=== PATIENT | male | born 1970 | race Caucasian/White ===

== ENCOUNTER 2017-06-11 12:57 | Observation (INO) | payer OTHER ==
[~2017-06-11] VITALS: Ht 170.2 cm; Wt 64.1 kg
[2017-06-11] VITALS (13 sets, daily range): BP systolic 117–153; BP diastolic 70–96; PULSE 82–118; RESP 12–18; O2SAT 94–100
[~2017-06-11 12:57] MED LIST: CEPH-512 PO; NOMED; SULF1TAB7 PO
--- NOTE | 2017-06-11 13:11 | ED.REPORT ---
HPI-General Illness Date of Service Jun 11, 2017 ED Provider: Aleksey Wheat MD Pt is a 46 y/o male w/ a history of psychosis presenting to the ED for evaluation after having a penis ring stuck onto his penis and is unable to remove it since earlier today. The patient says he was sleeping and a woman placed a metal ring over his penis at about 01:00 which is now causing significant pain and swelling of the penis. Pain is severe, throbbing, located diffusely around the shaft of his penis and not really radiating. He said he tried to remove it but was unable to do so. He denies any drug or alcohol use. He initially says that this hasn't happened before but after chart review he has been seen for this previously. He then admits that it has happened before in a similar manner. He says his mental health diagnosis is "psychosis" although he is not on any medications. He denies having any other complaints at this time, including no chest pain, shortness of breath, fever, chills, abdominal pain, drainage from the penis, or anything else of note. He denies any suicidal or homicidal ideations, nor hallucinations. Nursing Notes Stated Complaint: RING REMOVAL Chief Complaint: General Complaint Nursing Notes Reviewed: Yes Allergies: Coded Allergies: No Known Allergies (Verified , 08/25/16) Scheduled Cephalexin (Keflex) 500 Mg Capsule 500 MG PO QID Sulfamethoxazole/Trimeth 800-160 mg (Bactrim DS) 1 Each Tablet 1 TABLET PO BID Sulfamethoxazole/Trimeth 800-160 mg (Bactrim DS) 1 Each Tablet 1 TABLET PO BID Miscellaneous Medications No Historical Medication (No Historical Medication) Ea General Time Seen by MD: 13:07 Chief Complaint Other (penis pain) Hx Obtained From: Patient Arrived By: Walk-in Sudden in Onset?: Yes Onset Occurred: 9 - 12 hours ago Symptom Duration: Since onset Quality: Painful, Throbbing Radiation: : Does not radiate Severity: Current: Severe Severity: Maximum: Severe Recent Healthcare: Previous diagnosis Similar Sx Previous: Yes Past Medical History Past Medical History Undiagnosed untreated psychosis Past Surgical History Reports: Inguinal hernia repair Smoking History Unknown if Ever Smoker Social History Alcohol Use: Denies alcohol use Drug Use: Denies drug use Ambulatory Status Independent Review of Systems +penile pain and swelling Full Review of Systems Constitutional: Denies: Fever Eyes: Denies: Blurred bilateral Ears / Nose / Throat: Denies: Sore throat Respiratory: Denies: Shortness of breath Cardiovascular: Denies: Chest pain GI: Denies: Abdominal pain, Vomiting Male: Denies Penile discharge, Denies Testicular pain, Denies Testicular swelling Musculoskeletal: Denies: Back pain Skin: Denies Itching Allergy / Immune: Denies: Itching Neurologic: Denies: Headache Psychiatric: Denies: Change mental status Complete sys rev & neg: except as marked. Physical Exam Nursing note and vitals reviewed. Constitutional: Somewhat disheveled middle-aged male sitting up in bed. Not diaphoretic. Uncomfortable. Head: Normocephalic and atraumatic. Mouth/Throat: Oropharynx is clear and moist. No oropharyngeal exudate. Poor dentition. Eyes: EOM are normal. Pupils are equal, round, and reactive to light. Neck: Supple, no tracheal deviation. Cardiovascular: Tachycardic, regular rhythm. Equal and intact distal pulses throughout. Pulmonary/Chest: Effort normal and breath sounds normal. No respiratory distress. Abdominal: Soft. No distension. There is no tenderness, rebound, or guarding. : Engorged penis with a small abrasion to the shaft of the penis. Approx 2 cm diameter ring at the base of the penis appears to be constricting blood flow. Appears reddish blue. Musculoskeletal: Range of motion grossly intact, moving all extremities. No edema appreciated. Neurological: AOx3. Grossly nonfocal exam. Skin: Warm and dry, no rashes or pallor appreciated. Psychiatric: Appropriate mood and affect. Behavior appears normal. Vital Signs Vital Signs Date Time Temp Pulse Resp B/P Pulse Ox O2 Delivery O2 Flow Rate FiO2 06/11/17 18:27 37 94 17 119/76 100 Room Air 06/11/17 18:20 37 94 17 119/76 100 Room Air 06/11/17 16:36 36.7 105 17 129/70 97 Room Air 06/11/17 15:07 36.7 98 16 134/78 98 Room Air 06/11/17 13:03 36.9 118 18 153/91 99 Initial VS: Reviewed Interpretation & Diagnostics Lab Results Interpretation Result Diagram: 06/11/17 1500 06/11/17 1500 Test 06/11/17 15:00 White Blood Count 11.4th/mm3 (3.8-10.1) Red Blood Count 4.69mil/mm3 (4.40-5.80) Hemoglobin 14.3g/dL (13.8-17.2) Hematocrit 42.1% (41.0-50.0) Mean Corpuscular Volume 89.8fL (81-100) Mean Corpuscular Hemoglobin 30.5pg (27.0-35.0) Mean Corpuscular Hemoglobin Concent 34.0% (32.0-37.0) Red Cell Distribution Width 13.5% (12.3-15.4) Platelet Count 280bil/L (150-400) Neutrophils (%) (Auto) 70.0% (40-74) Lymphocytes (%) (Auto) 18.2% (14-46) Monocytes (%) (Auto) 9.4% (4-12) Eosinophils (%) (Auto) 1.8% (0-5) Basophils (%) (Auto) 0.3% (0-3) Prothrombin Time 10.3sec (8.1-12.5) Prothromb Time International Ratio 0.96ratio Sodium Level 140mEq/L (134-144) Potassium Level 4.3mEq/L (3.5-5.2) Chloride Level 101mEq/L (97-108) Carbon Dioxide Level 22mmol/L (18-29) Blood Urea Nitrogen 23mg/dL (6-24) Creatinine 0.75mg/dL (0.76-1.27) Estimat Glomerular Filtration Rate 119mL/min (>59) Glucose Level 96mg/dL (60-99) Calcium Level 9.6mg/dL (8.5-10.1) Total Bilirubin 2.0mg/dL (0.0-1.2) Aspartate Amino Transf (AST/SGOT) 38U/L (0-50) Alanine Aminotransferase (ALT/SGPT) 17U/L (0-44) Alkaline Phosphatase 52U/L (25-150) Total Protein 8.1g/dL (6.4-8.4) Albumin 4.9g/dL (3.4-5.0) Hold Mariscal Top Tube Received (Received) Procedures Procedure Notes: 13:20 - Attempted to cut the ring away with a ring-cutter with no success. The metal seems to be too hard. Subsequently tried again approximately 20 minutes later, again w/o success. 15:00 - Attempted again to cut the ring with larger cutters with no success. Re-Eval/Medical Decision Med Decision/Clinical Course In summary, 46-year-old male presenting to the ED for evaluation after having a previous ring entrapped around the base of the shaft of his penis approximately 12 hours prior to arrival. Obvious concern for ischemic injury given his physical examination and reported history. He was evaluated immediately upon his arrival given the severity of the situation. I attempted multiple times to remove the ring with both ring cutters and stronger bolt cutters without success. I contacted urology immediately upon patient's arrival as per below; appreciate Dr. Galindo's involvement. The recommendation was to continue attempting removal with similar instruments, which proved futile. Of note, at one point the patient managed to get his hands on some ring cutters and tried to remove it himself; he was also unsuccessful, however did manage to cut the shaft of his penis in several places. I instructed the patient that he should not attempt this on his own and that he could cause further damage. The ring diameter compared to the diameter of the engorged penis was an issue and we were unable to slip anything else underneath the ring, including elastic or related material in an attempt to remove it. I asked Dr. Galindo about aspiration or any other ideas he may have with respect to removal. Upon Dr. Galindo's arrival to the ED, he too attempted to remove the ring but without success. At that time , nursing staff were told that he would take the patient to the OR as soon as he was able to do so. Preoperative labs ordered. Grossly unremarkable with the exception of a bilirubin of 2.0; unclear significance of this at this time, however this will need to be addressed moving forward. Dr. Galindo subsequently called me from the operating room stating that he thought the patient may need a psychiatry evaluation. The patient is not currently endorsing any homicidal or suicidal ideations, nor endorsing any hallucinations, however his pattern of doing this on repeated occasions is concerning. He does not appear to be actively psychotic at this time. Given the complexity of the patient's situation and the severity of his condition, it was felt that he would require admission to the hospital. I contacted the hospitalist, who will admit the patient for further management and evaluation of his penile incarceration. Source of Hx: Old records Time of Eval: 13:33 Re-Evaluation/Progress Note: Declining any pain medication or local anesthetic at this time. Time of Eval: 13:41 Re-Evaluation/Progress Note: The patient was rechecked by the nurse and found to be trying to cut the ring off himself. He cut into his penis in the process. He did not have any success. Time of Eval: 14:01 Re-Evaluation/Progress Note: Urology OR staff here to assess and report back to Dr. Galindo. Time of Eval: 15:24 Re-Evaluation/Progress Note: Pt rechecked. The appearance of his penis is worsening. Pain is managed when he is remaining still. Attempted to cut the ring with different cutters by recommendation of Dr. Galindo. No success. Time of Eval: 16:08 Re-Evaluation/Progress Note: Dr. Galindo in room evaluating patient. Consultation : Referral / Consult Name: Glen Galindo MD Consulted With: Urology Call Returned at: 13:31 Dietetic Tech: Will see patient, Agrees with eval, Agrees with plan Note: Currently in OR. Will see in ED [facility]. Called back 14:11 and said that he would be 1.5-2 hours out. Requests we should keep trying in the meantime. Called back 15:13 and said he would like us to try again and says he may have another surgery to do afterwards. I reiterated again my concern for the emergent nature of the situation and that I would like him to be seen as soon as able. He stated that he will call back as soon as he's able. Called back at 16:03 - Will come see patient. Called back at 18:15 - He states that he will take him to the OR once he is done with his current case. Counseled Regarding: Diagnosis, Lab results Discharge & Departure Primary Impression: Penile trauma Encounter type: initial encounter Qualified Code: S39.94XA - Unspecified injury of external genitals, initial encounter Additional Impressions: FB penis Encounter type: initial encounter Qualified Code: T19.4XXA - Foreign body in penis, initial encounter Self-inflicted trauma involving penis Encounter type: initial encounter Qualified Code: S39.94XA - Unspecified injury of external genitals, initial encounter Disposition: ADMITTED TO HOSPITAL Discharge Condition All VS Reviewed: Yes Condition: Stable Referrals: NOPCP (PCP) Crit Care Except Billable Proc Time Spent: 75-104 minutes Services Performed: Patient management by me, Time spent at bedside, Reviewing test results, Reviewing imaging, Discussing patient care, Documentation in record Critical Care Notes: Emergent management of ring that is constricting blood flow to the penis; imminent risk of loss of organ. Scribe Attestation Portions of this note were transcribed by Delroy Crawford. I, Dr. Wheat personally performed the history, physical exam and medical decision-making; I reviewed and confirmed the accuracy of the information in the transcribed note. Aleksey Wheat MD Jun 11, 2017 13:11 DELROY CRAWFORD Jun 11, 2017 13:19
--- NOTE | 2017-06-11 13:27 | ED.REPORT ---
HPI-General Illness Date of Service Jun 11, 2017 ED Provider: Nursing Notes Stated Complaint: RING REMOVAL Chief Complaint: General Complaint Allergies: Coded Allergies: No Known Allergies (Verified , 08/25/16) Scheduled Cephalexin (Keflex) 500 Mg Capsule 500 MG PO QID Sulfamethoxazole/Trimeth 800-160 mg (Bactrim DS) 1 Each Tablet 1 TABLET PO BID Sulfamethoxazole/Trimeth 800-160 mg (Bactrim DS) 1 Each Tablet 1 TABLET PO BID Miscellaneous Medications No Historical Medication (No Historical Medication) Ea General Time Seen by MD: 13:07 Past Medical History Past Medical History Psychosis Past Surgical History Reports: Inguinal hernia repair Smoking History Unknown if Ever Smoker Ambulatory Status Independent Physical Exam Vital Signs Vital Signs Date Time Temp Pulse Resp B/P Pulse Ox O2 Delivery O2 Flow Rate FiO2 06/11/17 13:03 36.9 118 18 153/91 99 Discharge & Departure Referrals: NOPCP (PCP) Aleksey Wheat MD Jun 11, 2017 13:27
[2017-06-11] MEDS ORDERED: 0.9% Sodium Chloride 1,000 ML IV ONE (14:52)
[2017-06-11] MEDS ORDERED: Ondansetron 2 mg/mL 2 mL Inj IVPUSH ONE (14:55)
[2017-06-11 15:08] LABS: BASOPHILS % (AUTO) 0.3 % (0-3); EOSINOPHILS % (AUTO) 1.8 % (0-5); MONOCYTES % (AUTO) 9.4 % (4-12); Mean Corpuscular Hemoglobin 30.5 pg (27.0-35.0); Mean Corpuscular Volume 89.8 fL (81-100); Platelet Count 280 bil/L (150-400)
[2017-06-11] MEDS: HYDROmorphone 1 mg/mL Inj IVPUSH PRN ×2 (15:08→16:36)
[2017-06-11 15:26] LABS: INR 0.96 ratio
[2017-06-11] MEDS ORDERED: Lactated Ringer's 1,000 ML IV ONE ×2 (18:50→19:11)
--- NOTE | 2017-06-11 18:50 | PCM.HPANE ---
Patient Data Surgeon Admitting Provider: Attending Provider:Glen Galindo MD Primary Care Physician:[facility] Other Provider:Luis Bond Anesthesia Reason for Visit Penile Incarceration Ht/WT & BMI Height (Feet): 5 Height (Inches): 7 Weight (Kilograms): 64.09 Body Mass Index Allergies Coded Allergies: No Known Allergies (Verified , 08/25/16) Past Anesthesia History Anesthesia History: Denies:: Anesthesia Reactions Diabetes History Hx Diabetes?: No Medications Active Scripts Sulfamethoxazole/Trimeth 800-160 mg (Bactrim DS)1 Each Tablet1 Tablet PO BID # 20 TABLET Ref 0 Prov:GuerreroAyesha L INTERNAL MEDICINE PHYSICIAN ASSISTANT 09/05/16 Cephalexin (Keflex)500 Mg [id number] Mg PO QID #40 CAPSULE Ref 0 Prov:SamikAyesha Corina INTERNAL MEDICINE PHYSICIAN ASSISTANT 09/05/16 Sulfamethoxazole/Trimeth 800-160 mg (Bactrim DS)1 Each Tablet1 Tablet PO BID # 10 TABLET Prov:Prince Ledesma MD 08/25/16 Reported Medications No Historical Medication Ea 11/15/10 History History of ENT Problems?: No HEENT History: Denies:: Abnormal Airway Difficult Intubation Denture Type: None Teeth Condition: Broken Teeth Missing Teeth Hx of Heart Problems?: No Cardiovascular History: Denies:: Congestive Heart Failure Hypertension Hx of Respiratory Problem?: No Respiratory History: Denies:: COPD Tuberculosis Hx Neurologic Problems?: No Neurological History: Denies:: Dementia Parkinson's Disease Hx of GI Problems?: No Hx of Problems?: No Other History/Comment ring around his penis current issue Hx Musculoskeletal Problems?: No Hx of Psycho/Social Problems?: Yes Psycho Social History: Positive for:: Anxiety (psychosis) Denies:: Suicide Attempt Hx Surgeries?: No Hx Diabetes: No Other History/Comment psychosis of unknown type, not apparently on any meds Hx Alcohol Use: NoHx Substance Use: No Smoking Status: Unknown if Ever Smoker Have You Smoked inLast 12 mo: Yes Stop/Bang LUZ Risk Assessment: Low Risk, <3 Yes Risk Assessment Category Category 1A: Patient has history of documented sleep apnea, and HAS NOT received any narcotic, sedative or anesthesia administration during this stay. Category 1B: Patient has history of documented sleep apnea, and HAS received any narcotic , sedative or anesthesia administration during this stay Category 2: Patient has SUSPECTED Obstructive Sleep Apnea, and HAS received any narcotic , sedative or anesthesia administration during this stay. Category 3: Patient has SUSPECTED Obstructive Sleep Apnea and HAS NOT received narcotic, sedative or anesthesia administration during this stay. Category 4: Outpatient in Procedural Areas with known sleep apnea or who screen positive for High Risk via the STOP/BANG questionnaire. Exam Exam Vital Signs Vital Signs Date Time Temp Pulse Resp B/P Pulse Ox O2 Delivery O2 Flow Rate FiO2 06/11/17 18:27 37 94 17 119/76 100 Room Air 06/11/17 18:20 37 94 17 119/76 100 Room Air 06/11/17 16:36 36.7 105 17 129/70 97 Room Air 06/11/17 15:07 36.7 98 16 134/78 98 Room Air 06/11/17 13:03 36.9 118 18 153/91 99 General Appearance: Cooperative, No Acute Distress, Other (patient very drowsy , arousable but quickly falls back asleep) HEENT/AIRWAY: MP 2, Other (missing multiple teeth, few remaining teeth are chppped/broken/caried) Lungs: Normal Air Movement Heart: Exam Unremarkable Meds/Labs/Diagnostics Admission Meds Current Medications Sodium Chloride (Normal Saline) 1,000 ml @ 0 mls/hr Q0M ONCE IV Last administered on 06/11/17 15:09; Start 06/11/17 at 14:52; Stop 06/11/17 at 14:53 ; Status DC Ondansetron HCl (Zofran Inj) 4 mg ONCE ONCE IVPUSH Last administered on 15:08; Start 06/11/17 at 14:55; Stop 06/11/17 at 14:56; Status DC Lorazepam (Ativan Inj) 2 mg ONCE ONCE IVPUSH Last administered on 06/11/17 16 :36; Start 06/11/17 at 16:15; Stop 06/11/17 at 16:16; Status DC Labs Test 06/11/17 15:00 White Blood Count 11.4th/mm3 (3.8-10.1) Red Blood Count 4.69mil/mm3 (4.40-5.80) Hemoglobin 14.3g/dL (13.8-17.2) Hematocrit 42.1% (41.0-50.0) Mean Corpuscular Volume 89.8fL (81-100) Mean Corpuscular Hemoglobin 30.5pg (27.0-35.0) Mean Corpuscular Hemoglobin Concent 34.0% (32.0-37.0) Red Cell Distribution Width 13.5% (12.3-15.4) Platelet Count 280bil/L (150-400) Neutrophils (%) (Auto) 70.0% (40-74) Lymphocytes (%) (Auto) 18.2% (14-46) Monocytes (%) (Auto) 9.4% (4-12) Eosinophils (%) (Auto) 1.8% (0-5) Basophils (%) (Auto) 0.3% (0-3) Prothrombin Time 10.3sec (8.1-12.5) Prothromb Time International Ratio 0.96ratio Sodium Level 140mEq/L (134-144) Potassium Level 4.3mEq/L (3.5-5.2) Chloride Level 101mEq/L (97-108) Carbon Dioxide Level 22mmol/L (18-29) Blood Urea Nitrogen 23mg/dL (6-24) Creatinine 0.75mg/dL (0.76-1.27) Estimat Glomerular Filtration Rate 119mL/min (>59) Glucose Level 96mg/dL (60-99) Calcium Level 9.6mg/dL (8.5-10.1) Total Bilirubin 2.0mg/dL (0.0-1.2) Aspartate Amino Transf (AST/SGOT) 38U/L (0-50) Alanine Aminotransferase (ALT/SGPT) 17U/L (0-44) Alkaline Phosphatase 52U/L (25-150) Total Protein 8.1g/dL (6.4-8.4) Albumin 4.9g/dL (3.4-5.0) Hold Mariscal Top Tube Received (Received) Plan Impression Patient chart reviewed, patient interviewed and anesthestic plan with risks, benefits, and alternatives discussed, and informed consent obtained. NPO per Anesth. Guidelines: Yes ASA Physical Status: ASA2 Plus Emergency Anesthetic Plan: GA Bene/Risks/Altern/Consents: Yes (consented but patient very drowsy. ) HP Complete Prior to Induction: Yes Kenrick Bustillo MD Jun 11, 2017 18:50
[2017-06-11] MEDS ORDERED: Propofol 10 mg/mL 20 mL Inj ONE (19:11)
[2017-06-11] MEDS ORDERED: Ondansetron 2 mg/mL 2 mL Inj ONE (19:11)
[2017-06-11] MEDS ORDERED: fentaNYL-PF 50 mCg/mL 2 mL Inj ONE (19:11)
[2017-06-11] MEDS ORDERED: Dexamethasone 4 mg/mL Inj ONE (19:11)
[2017-06-11] MEDS ORDERED: Lactated Ringer's 1,000 ML IV SCH (19:26)
[2017-06-11] MEDS ORDERED: Lactated Ringer's 500 ML IV PRN (19:26)
[2017-06-11] MEDS ORDERED: fentaNYL-PF 50 mCg/mL 2 mL Inj IVPUSH PRN (19:30)
[2017-06-11] MEDS ORDERED: MetoCLOpramide 5 mg/mL 2 mL Inj IVPUSH PRN (19:30)
[2017-06-11] MEDS ORDERED: Albuterol-Ipratropium 3 mL Inhalation Solution NEB PRN (19:30)
[2017-06-11] MEDS ORDERED: EPHEDrine Sulfate 50 mg/mL Inj IVPUSH PRN (19:30)
[2017-06-11] MEDS ORDERED: Phenylephrine 10,000 mCg/mL Inj IVPUSH PRN (19:30)
[2017-06-11] MEDS ORDERED: Ondansetron 2 mg/mL 2 mL Inj IVPUSH PRN ×2 (19:30→23:05)
[2017-06-11] MEDS ORDERED: Dexamethasone 4 mg/mL Inj IVPUSH PRN (19:30)
[2017-06-11] MEDS ORDERED: HYDROmorphone 1 mg/mL Inj IVPUSH PRN (19:30)
--- NOTE | 2017-06-11 20:02 | CONS ---
[address] [address] CONSULTATION REPORT PATIENT: LAURE JUAREZ : 1970 MR#: [id number] ADMIT: 06/11/2017 JOB ID: [id number] DATE OF SERVICE: 06/11/2017 CHIEF COMPLAINT: Penile swelling, penile pain, inability to remove penile ring. HISTORY OF PRESENT ILLNESS: I was asked by ED, Dr. Aleksey Wheat, to evaluate this 46-year-old male for penile pain, penile swelling, and inability to remove penile ring. The patient states that a metal ring was placed over his penis at approximately 1:00 a.m. last night. The patient states he subsequently developed significant penile pain and significant penile swelling. The patient presently reports penile pain and penile swelling. The patient states he was unable to remove the penile ring at home. The patient reportedly has had this happen at a similar episode to this in the past. The patient reports no fever, no chills. No nausea, no vomiting. The patient reports difficulty voiding. Multiple attempts were made by ED staff to remove the penile ring, however were unsuccessful. PAST MEDICAL HISTORY: Reported history of psychosis. PAST SURGICAL HISTORY: Inguinal hernia repair. MEDICATIONS: No home medications. ALLERGIES: No known drug allergies. SOCIAL HISTORY: No alcohol use. No drug use. FAMILY HISTORY: Noncontributory. REVIEW OF SYSTEMS: Constitutional: No fever, no chills. GI: No nausea, no vomiting. PHYSICAL EXAMINATION: General: Well-developed well-nourished male in no acute distress. Vital signs: Afebrile, temperature 36.7 degrees Celsius. Heart rate 98, respiratory rate 16, BP 134/78. O2 saturation 98% on room air. General: Well-developed, well-nourished male in no acute distress. HEENT: Head normocephalic, atraumatic. Eyes: Extraocular muscles intact. Neck: Supple. Chest: No use of accessory muscles. Nonlabored respirations. No retractions. Abdomen: Soft, nondistended, nontender. No palpable masses. No rebound, no guarding. Skin: Warm and dry. Neurologic: Sensation grossly intact. Normal speech. Psychiatric: Alert and oriented x3. : Penis/scrotum normal. Bilateral testes descended. No masses. Urethral meatus normal. Penis: Moderate to severe penile swelling and penile tenderness with a metal penile ring at the base of the penile shaft. PROCEDURE: Penile ring was attempted to be removed; however, this was unsuccessful at the bedside. Of note, the patient was given Dilaudid IV and Ativan IV. The penile ring was attempted to be crushed, however the penile ring was still unable to be removed. ASSESSMENT: Penile pain, penile swelling, and inability to remove penile ring. Risks, benefits, and alternatives of surgery, specifically removal of penile ring, were discussed with the patient. All questions were answered. The patient wants to have surgery as recommended. PLAN: The patient will have urgent surgery, specifically removal of penile ring, today in the operating room under anesthesia. The patient has been made n.p.o. The patient is being admitted by the hospitalist, with consideration for psychiatry consultation for patient's reported history of psychosis. The case discussed with ER Dr. Aleksey Wheat. JORDEN
--- NOTE | 2017-06-11 20:15 | PCM.SURGPO ---
Immediate Operative Note Date of Surgery: Jun 11, 2017 Pre Operative Diagnosis Inability to remove penile ring, penile swelling Post Operative Diagnosis Inability to remove penile ring, penile swelling Procedure Removal of penile ring Surgeon and Railroad Dispatcher Surgeon: Glen Galindo MD Assistants: None Findings Penile ring was cut in 2 places using a rogerio connor drill and a rogerio circular saw, with a metal malleable retractor protecting penis. Penile ring was subsequently able to be removed without injury to penis. Of note, small superficial cuts on dorsal aspect of penile shaft (near base) were seen prior to surgery (which occurred before surgery). Complications There were no periprocedural complications identified. Surgical Specimen Removed: No Specimen sent to Pathology: No Anesthetic Administered: GA Grafts, Implants: None Output, Estimated Blood Loss: <5 Blood Admin during surgery: No Additional information Patient to be transferred to [facility] bed when stable under care of hospitalist service. Glen Galindo MD Jun 11, 2017 20:15
--- NOTE | 2017-06-11 20:23 | PCM.ANEP1 ---
Post Anesthesia PACU Phase 1 Assessment Vital Signs see anesthesia record Vital Signs Date Time Temp Pulse Resp B/P Pulse Ox O2 Delivery O2 Flow Rate FiO2 06/11/17 18:27 37 94 17 119/76 100 Room Air 06/11/17 18:20 37 94 17 119/76 100 Room Air 06/11/17 16:36 36.7 105 17 129/70 97 Room Air 06/11/17 15:07 36.7 98 16 134/78 98 Room Air 06/11/17 13:03 36.9 118 18 153/91 99 Anesthetic Administered: GA Level of Alertness: Sleeping, hard to arouse Pain: No Pain Scale Score: 8 Nausea or Vomiting: No CV Function & Hydration Stable: Yes Airway Device: Oralpharangeal Airway Oxygen Delivery: Simple Mask Lungs: Normal Air Movement PACU Phase 2 Assessment Complications: No Follow up Care: No Patient Instructions Provided: N/A Kenrick Bustillo MD Jun 11, 2017 20:23
[2017-06-11] MEDS ORDERED: HYDROcodone-APAP 5-325 mg Tablet PO PRN (23:05)
[2017-06-11] MEDS ORDERED: Alum-Mag Hydrox-Simeth 30 mL Suspension PO PRN (23:05)
[2017-06-11] MEDS ORDERED: Polyethylene Glycol (PEG) 17 Gm Powder PO PRN (23:05)
--- NOTE | 2017-06-11 23:26 | PCM.HPMED ---
Subjective Date of Service Jun 11, 2017 Primary Provider: Admitting Physician: Glen Galindo MD Primary Care Physician: [facility] Attending Physician: Glen Galindo MD Admit Status: From the Emergency Department Chief Complaint: Penile pain History of Present Illness: Benny Peterson is an unfortunate 46-year-old male with a history of unclear psychosis disorder who presented to the ED with complaints of penile pain that started earlier today 06/11/2017. He reports that he was visiting with a woman and fell asleep, only to awaken with a metal ring around his penis. It is now causing significant pain which is diffuse and throbbing. It does not radiate. He attempted to remove it with soap was unable to do so. He denied any chest pain, shortness of breath, penile discharge or drainage, fever or chills, abdominal pain, suicidal or homicidal ideations, hallucinations. In the ED, Dr. Wheat attempted to remove the ring with multiple tools to no avail. The patient again attempted to remove it himself and has some shallow cuts along the shaft of his penis. Dr. Galindo of urology was consulted, and removed it the OR. The hospitalist team was consulted for pain control and psychosis evaluation. Of note, the patient was seen in the ED approximately one year ago for the same issue but did not need to be taken to the OR. He developed penile cellulitis approximately a week after removal. Review of Systems: Comprehensive review of systems was conducted with the patient and found to be negative except as noted above in HPI. Allergies Coded Allergies: No Known Allergies (Verified , 08/25/16) Home Medications None PMH Reports: Psychosis, diagnosed by Dr. Clark Surgical History Inguinal hernia repair Penile foreign body removal Family History Denies Social History Hx Alcohol Use: No Hx Substance Use: No Hx Tobacco Use: Yes Smoking Status: Current Every Day Smoker Living Arrangement: with Friends/Roommate Exam Vital Signs Vital Sign - Last Date Time Temp Pulse Resp B/P Pulse Ox O2 Delivery O2 Flow Rate FiO2 06/11/17 21:33 36.6 101 16 144/86 99 Room Air 06/11/17 20:30 8 Exam General: Disheleved, unkept, older-than stated age appearing male in no acute distress, appropriately interactive but mumbles during our interview. HEENT: Normocephalic, atraumatic. External ears without defect. Pupils equal, round, and reactive to light and accommodation. Oropharynx free of erythema and cobble stoning with moist mucosa. Neck: Supple with full range of motion. No jugular venous distension. No bruits. No lymphadenopathy or thyromegaly. Cardiovascular: Tachycardic with normal rhythm with no murmurs, rubs, or gallops appreciated Pulmonary: Clear to auscultation bilaterally with no crackles, wheezes, or rhonchi. Normal respiratory effort with no use of accessory muscles. Abdomen: Bowel tones present. Soft, nontender, nondistended. No hepatosplenomegaly or masses appreciated. : Penis grossly engorged with a ring of erythema at the base of the shaft. Some shallow cuts along his shaft that do not appear infected. No skin sloughing or discoloration present. Extremities: No clubbing, cyanosis, edema appreciated. Skin: Normal temperature, turgor, and texture; no rash, ulcers. Neurological: Cranial nerves grossly intact. Normal muscle strength, tone, and bulk. Reflexes, coordination, and sensory function within normal limits. No known gait impairment. Psychiatric: Normal mood and affect. Alert and oriented to person, place, and time. Lab and Diagnostics Result Diagram: 06/11/17 1500 06/11/17 1500 Assessment & Plan Benny Peterson is an unfortunate 46-year-old male with a history of unclear psychosis disorder who presented to the ED with complaints of penile pain that started earlier today 06/11/2017 after he awoke with a ring on his penis. Penile foreign body, present on admission. Acute. Ongoing. - Patient presented with a ring around his penis; could not be removed in the ED - Dr. Galindo of urology consulted from ED, removed ring in OR; his recommendations : No antibiotic therapy at this time He will see patient for reevaluation in the morning Hospitalist team to manage pain and psych status - Hydrocodone 5-325 one to 2 tabs as needed for pain control Unclear psychoses, present on admission. Chronic. - Patient reports being diagnosed by Dr. Clark but is not on any medications - He used to see a PCP at [facility] but has not done so in quite some time - He is not acutely psychotic, responding appropriately and denying suicidal or homicidal ideations and hallucinations - MEAT SCRUBBER consulted for community resources - Consider consulting Psychiatry if he becomes overtly symptomatic PRN Medications - Acetaminophen as needed for mild pain/fever/headache - Bowel regimen as needed - Antiemetic as needed Patient status: Patient is admitted under observation status with expected length of stay less than 2 midnights due to severity of presenting symptoms, risk of adverse event, and complexity of treatment plan. Attending Statement The patient was seen and examined together with Dr. Buenrostro on 06/11 and I agree with the history, exam and plan as outlined in the note above. Willam Buenrostro DO Jun 11, 2017 23:26 Olayinka Lovell MD Jun 12, 2017 00:41
[2017-06-12 00:47] VITALS: BP 118/75; PULSE 98; RESP 16; O2SAT 98
[2017-06-12 01:22] LABS: APPEARANCE,URINE CLEAR (CLEAR,HAZY); COLOR,URINE DARK YELLOW (YELLOW); OCCULT BLOOD,URINE TRACE (NEGATIVE); UROBILINOGEN,URINE NORMAL (NORMAL)
--- NOTE | 2017-06-12 02:56 | NUR ---
Admit Patient arrived to unit, able to transfer self to bed. Oriented to room, and call light. Patient unable to answer questions at first. Able to spontaneously void using urinal. Cooperative, and able to tolerate general diet. Ambulating well, and denies pain. intentional rounding.
[2017-06-12 05:05] VITALS: BP 112/71; PULSE 91; RESP 18; O2SAT 98
[2017-06-12 05:25] LABS: BASOPHILS % (AUTO) 0.1 % (0-3); EOSINOPHILS % (AUTO) 0.1 % (0-5); MONOCYTES % (AUTO) 9.3 % (4-12); Mean Corpuscular Hemoglobin 30.3 pg (27.0-35.0); NEUTROPHILS % (AUTO) 73.8 % (40-74); Platelet Count 275 bil/L (150-400)
--- NOTE | 2017-06-12 07:23 | PCM.PNSURG ---
Subjective Date of Service: Jun 12, 2017 Date of Service: Jun 12, 2017 Subjective: Patient reports no penile pain, improved penile swelling, no dysuria, no gross hematuria, no difficulty voiding, no nausea or vomiting, ambulating without difficulty. Of note, patient was seen this morning. Objective Vital Sign- Last 8 Hours Date Time Temp Pulse Resp B/P Pulse Ox O2 Delivery O2 Flow Rate FiO2 06/12/17 05:05 36.7 91 18 112/71 98 Room Air 06/12/17 00:47 36.7 98 16 118/75 98 Room Air Intake and Output- Last 8 Hour 06/12/17 Cumulative From/Thru 07:00 06/11/17 13:03 - 06/12/17 06:14 Intake Total 1000 ml 2600 ml Output Total 550 ml 555 ml Balance 450 ml 2045 ml Intake Oral 1000 ml 1000 ml IV Total 1600 ml Output Urine Total 550 ml 550 ml Estimated Blood Loss 5 ml # Voids 1 1 # Bowel Movements 1 1 Voided urine output: 550ml last 8hr. shift General: Alert, Oriented X3, Cooperative, No Acute Distress Neck: Supple Lungs: Normal Air Movement SURGICAL WOUND : Wound Location/Description Urethral meatus: normal Penis: mild-moderate penile edema (significantly improved from pre-op), pink, small superficial cuts on dorsal aspect of penile shaft (near base) with no sign of infection (covered with Band-aid) Neuro: Normal Speech, Sensation Intact Catheters: None Result Diagram: 06/12/1744106/12/17441 Assessment & Plan Impression POD #1, s/p removal of penile ring, afebrile, hemodynamically stable, doing well post-op, with significantly improved penile edema and resolved penile pain Problems: Plan Patient can be discharged home when medically cleared by hospitalist service Patient should return to see me in the office in 2 weeks for post-op visit Patient was very strongly advised to not use a penile ring in the future Resuscitation Status: CPR: Attempt Resuscitation Glen Gailndo MD Jun 12, 2017 07:23
[2017-06-12 08:15] VITALS: BP 118/69; PULSE 98; RESP 20; O2SAT 98
--- NOTE | 2017-06-12 09:30 | NUR ---
AMA Patient left AMA. RN entered room to do morning assessment and found patient not in room. RN walked the unit and out side the unit and was unable to locate patient. Security notified and was unable to locate patient. MD notified. Patient gathered all belongings except for a pair of wet dirty socks.
--- NOTE | 2017-06-12 11:43 | PCM.PNMED ---
Subjective Date of Service Jun 12, 2017 Subjective Pt sitting up in chair. Appeared anxious. Couldn't recall being told about surgery. Exam Vital Signs Vital Sign - Last Date Time Temp Pulse Resp B/P Pulse Ox O2 Delivery O2 Flow Rate FiO2 06/12/17 08:15 36.1 98 20 118/69 98 Room Air 06/11/17 20:30 8 Intake and Output 06/11/17 06/11/17 06/12/17 Cumulative From/Thru 15:00 23:00 07:00 06/11/17 13:03 - 06/12/17 06:14 Intake Total 1600 ml 1000 ml 2600 ml Output Total 5 ml 550 ml 555 ml Balance 1595 ml 450 ml 2045 ml Intake Oral 1000 ml 1000 ml IV Total 1600 ml 1600 ml Output Urine Total 550 ml 550 ml Estimated Blood Loss 5 ml 5 ml # Voids 1 1 # Bowel Movements 1 1 Exam General: Disheleved, unkept, older-than stated age appearing male in no acute distress, appropriately interactive but mumbles during our interview. HEENT: Normocephalic, atraumatic. External ears without defect. Pupils equal, round, and reactive to light and accommodation. Oropharynx free of erythema and cobble stoning with moist mucosa. Neck: Supple with full range of motion. No jugular venous distension. No bruits. No lymphadenopathy or thyromegaly. Cardiovascular: Tachycardic with normal rhythm with no murmurs, rubs, or gallops appreciated Pulmonary: Clear to auscultation bilaterally with no crackles, wheezes, or rhonchi. Normal respiratory effort with no use of accessory muscles. Abdomen: Bowel tones present. Soft, nontender, nondistended. No hepatosplenomegaly or masses appreciated. : Penis grossly engorged with a ring of erythema at the base of the shaft. Some shallow cuts along his shaft that do not appear infected. No skin sloughing or discoloration present. Extremities: No clubbing, cyanosis, edema appreciated. Skin: Normal temperature, turgor, and texture; no rash, ulcers. Neurological: Cranial nerves grossly intact. Normal muscle strength, tone, and bulk. Reflexes, coordination, and sensory function within normal limits. No known gait impairment. Psychiatric: Normal mood and affect. Alert and oriented to person, place, and time. IVs and Medications Medications Reviewed: Medications were reviewed in detail Lab and Diagnostics Result Diagram: 06/12/17 0442 06/12/17 0442 Assessment & Plan Benny Peterson is an unfortunate 46-year-old male with a history of unclear psychosis disorder who presented to the ED with complaints of penile pain that started on 06/11/2017 after he awoke with a ring on his penis. could not be removed in the ED s/p removal in OR by Dr. Galindo Penile foreign body, present on admission. Acute. Ongoing. - Patient presented with a ring around his penis; could not be removed in the ED - Dr. Galindo of urology consulted from ED, removed ring in OR; his recommendations : No antibiotic therapy at this time - Hydrocodone 5-325 one to 2 tabs as needed for pain control - Pt left room around 9am on 06/12/17 and did not return. Plan was to get Psychiatry to see patient to further evaluate Psychosis and if needs to be started on medications. Unclear psychoses, present on admission. Chronic. - Patient reports being diagnosed by Dr. Clark but is not on any medications - He used to see a PCP at [facility] but has not done so in quite some time - He is not acutely psychotic, responding appropriately and denying suicidal or homicidal ideations and hallucinations - DIP STAND LOADER consulted for community resources - Pt left room around 9am on 06/12/17 and did not return. Plan was to get Psychiatry to see patient to further evaluate Psychosis and if needs to be started on medications. PRN Medications - Acetaminophen as needed for mild pain/fever/headache - Bowel regimen as needed - Antiemetic as needed Dispo- Pt left room around 9am on 06/12/17 and did not return. Security called to locate patient but could not find. Discharged on AMA status. Pain Evaluation: Adequate Pain Control VTE Mechanical Devices: Intermittant Pneumatic CD Royer Villela MD Jun 12, 2017 11:42
--- NOTE | 2017-06-12 11:47 | PCM.DC.MED ---
Discharge Summary Date of Service Jun 12, 2017 Dates of Hospitalization Date of Hospital Admission Jun 11, 2017 at 21:41 Date of Discharge: Jun 12, 2017 Providers: Admitting Physician: Olayinka Lovell MD Primary Care Physician: [facility] Attending Physician: Royer Villela MD Diagnosis at Time of Discharge Diagnosis at Time of Discharge Penile foreign body s/p removal in OR, present on admission. Acute. Ongoing. Unclear psychoses, present on admission. Chronic. Consultations Dr. Galindo- Urology Brief History Per HPI on 06/11/[address] Buenrostro Benny Peterson is an unfortunate 46-year-old male with a history of unclear psychosis disorder who presented to the ED with complaints of penile pain that started earlier today 06/11/2017. He reports that he was visiting with a woman and fell asleep, only to awaken with a metal ring around his penis. It is now causing significant pain which is diffuse and throbbing. It does not radiate. He attempted to remove it with soap was unable to do so. He denied any chest pain, shortness of breath, penile discharge or drainage, fever or chills, abdominal pain, suicidal or homicidal ideations, hallucinations. In the ED, Dr. Wheat attempted to remove the ring with multiple tools to no avail. The patient again attempted to remove it himself and has some shallow cuts along the shaft of his penis. Dr. Galindo of urology was consulted, and removed it the OR. The hospitalist team was consulted for pain control and psychosis evaluation. Of note, the patient was seen in the ED approximately one year ago for the same issue but did not need to be taken to the OR. He developed penile cellulitis approximately a week after removal. Hospital Course Benny Peterson is an unfortunate 46-year-old male with a history of unclear psychosis disorder who presented to the ED with complaints of penile pain that started on 06/11/2017 after he awoke with a ring on his penis. could not be removed in the ED s/p removal in OR by Dr. Galindo Penile foreign body, present on admission. Acute. Ongoing. - Patient presented with a ring around his penis; could not be removed in the ED - Dr. Galindo of urology consulted from ED, removed ring in OR; his recommendations : No antibiotic therapy at this time - Hydrocodone 5-325 one to 2 tabs as needed for pain control - Pt left room around 9am on 06/12/17 and did not return. Plan was to get Psychiatry to see patient to further evaluate Psychosis and if needs to be started on medications. Unclear psychoses, present on admission. Chronic. - Patient reports being diagnosed by Dr. Clark but is not on any medications - He used to see a PCP at [facility] but has not done so in quite some time - He is not acutely psychotic, responding appropriately and denying suicidal or homicidal ideations and hallucinations - SOAKER SODA WORKER consulted for community resources - Pt left room around 9am on 06/12/17 and did not return. Plan was to get Psychiatry to see patient to further evaluate Psychosis and if needs to be started on medications. PRN Medications - Acetaminophen as needed for mild pain/fever/headache - Bowel regimen as needed - Antiemetic as needed Dispo- Pt left room around 9am on 06/12/17 and did not return. Security called to locate patient but could not find. Discharged on AMA status. Exam Vital Signs (Last) Date Time Temp Pulse Resp B/P Pulse Ox O2 Delivery O2 Flow Rate FiO2 06/12/17 08:15 36.1 98 20 118/69 98 Room Air 06/11/17 20:30 8 Test 06/11/17 15:00 06/12/17 00:56 06/12/17 04:42 Prothrombin Time 10.3sec (8.1-12.5) Prothromb Time International Ratio 0.96ratio Hold Mariscal Top Tube Received (Received) Urine Color Dark yellow (YELLOW) Urine Appearance Clear (CLEAR,HAZY) Urine pH 6.0 (5.0-8.0) Urine Specific [place] 1.030 (1.003-1.035) Urine Protein Negativemg/dL (NEG,TRACE) Urine Glucose (UA) Negativemg/dL (NEGATIVE) Urine Ketones 15mg/dL (NEGATIVE) Urine Occult Blood Trace (NEGATIVE) Urine Nitrite Negative (NEGATIVE) Urine Bilirubin Negative (NEGATIVE) Urine Urobilinogen Normalmg/dL (NORMAL) Urine Leukocyte Esterase Negative (NEGATIVE) Urine RBC 3-10/hpf (0-2) Urine WBC 0-5/hpf (0-5) Urine Epithelial Cells Occasional/hpf (NONE-MOD) Urine Crystals None seen (NONE SEEN) Urine Bacteria Few/hpf (NONE-FEW) Urine Hyaline Casts None/lpf (NONE) Urine Granular Casts None seen (NONE SEEN) Urine Waxy Casts None seen (NONE SEEN) Urine Red Blood Cell Casts None seen (NONE SEEN) Urine White Blood Cell Casts None seen (NONE SEEN) Urine Mucus Present (None Seen) Urine Trichomonas None seen (NONE SEEN) Urine Yeast None (NONE SEEN) Urinalysis Comment None Urine Culture Reflexed Not indicated White Blood Count 10.5th/mm3 (3.8-10.1) Red Blood Count 4.58mil/mm3 (4.40-5.80) Hemoglobin 13.9g/dL (13.8-17.2) Hematocrit 41.7% (41.0-50.0) Mean Corpuscular Volume 91.0fL (81-100) Mean Corpuscular Hemoglobin 30.3pg (27.0-35.0) Mean Corpuscular Hemoglobin Concent 33.3% (32.0-37.0) Red Cell Distribution Width 13.6% (12.3-15.4) Platelet Count 275bil/L (150-400) Neutrophils (%) (Auto) 73.8% (40-74) Lymphocytes (%) (Auto) 16.6% (14-46) Monocytes (%) (Auto) 9.3% (4-12) Eosinophils (%) (Auto) 0.1% (0-5) Basophils (%) (Auto) 0.1% (0-3) Sodium Level 138mEq/L (134-144) Potassium Level 4.9mEq/L (3.5-5.2) Chloride Level 98mEq/L (97-108) Carbon Dioxide Level 24mmol/L (18-29) Blood Urea Nitrogen 22mg/dL (6-24) Creatinine 0.85mg/dL (0.76-1.27) Estimat Glomerular Filtration Rate 103mL/min (>59) Glucose Level 138mg/dL (60-99) Calcium Level 10.0mg/dL (8.5-10.1) Total Bilirubin 1.9mg/dL (0.0-1.2) Aspartate Amino Transf (AST/SGOT) 30U/L (0-50) Alanine Aminotransferase (ALT/SGPT) 15U/L (0-44) Alkaline Phosphatase 50U/L (25-150) Total Protein 6.9g/dL (6.4-8.4) Albumin 4.4g/dL (3.4-5.0) Discharge Medications No Active Prescriptions or Reported Meds Followup Plan Disposition: Pt left AMA without notifying staff so could not receive discharge instructions. Plan would have been to have patient seen by Psychiatry today before discharge. Follow-up plan Patient goes to [facility] but has not followed up in years per patient. Would recommend follow up. copies to: [facility] Royer Villela MD Jun 12, 2017 11:47
--- NOTE | 2017-06-12 11:48 | PCM.DIMED ---
Discharge Instructions Date of Service Jun 12, 2017 Dates of Hospitalization Jun 11, 2017 at 21:41 Discharge Diagnosis Discharge Diagnosis Penile foreign body s/p removal in OR, present on admission. Acute. Ongoing. Unclear psychoses, present on admission. Chronic. Patient Instructions Follow-up plan Patient goes to [facility] but has not followed up in years per patient. Would recommend follow up. Attending's Statement Pt left room around 9am on 06/12/17 and did not return. Security called to locate patient but could not find. Discharged on AMA status. Royer Villela MD Jun 12, 2017 11:48
--- NOTE | 2017-06-12 19:22 | OP ---
[address] [address] OPERATIVE REPORT PATIENT: LAURE JUAREZ : 1970 MR#: [id number] ADMIT: 06/11/2017 JOB ID: [id number] DATE OF SURGERY: 06/11/2017 PREOPERATIVE DIAGNOSIS(ES): Inability to remove penile ring, penile swelling. POSTOPERATIVE DIAGNOSIS(ES): Inability to remove penile ring, penile swelling. PROCEDURE: Removal of penile ring. SURGEON: Glen Galindo MD. SUPERINTENDENT TRANSMISSION: None. ANESTHESIA: General. ESTIMATED BLOOD LOSS: Less than 5 mL. SPECIMENS: None. DRAINS: None. COMPLICATIONS: None. CONDITION: Stable. FINDINGS: Penile ring was cut in two places using a rogerio connor drill and a rogerio circular saw, with a metal malleable retractor protecting the penis. Penile ring was subsequently able to be removed without injury to the penis. Of note, small superficial cuts on the dorsal aspect of the penile shaft (near the base) were seen prior to surgery (which occurred before surgery). INDICATIONS: The patient is a 46-year-old male with penile pain and penile swelling secondary to inability to remove penile ring. Note, attempts to remove the penile ring in the emergency department at the bedside were unsuccessful. The patient now presents for removal of penile ring in the operating room under anesthesia. PROCEDURE: The patient was brought to the operating room and placed supine on the operating room table. The patient was given Ancef IV antibiotics. General anesthesia was administered. The patient was left in supine position. The patient was prepped and draped in standard surgical fashion. Examination revealed penis with moderate to severe penile swelling with a metal penile ring at the base of the penile shaft. Of note, small superficial cuts on the dorsal aspect of the penile shaft near the base were seen prior to surgery and these cuts had occurred before surgery, reportedly while patient was in emergency department when patient was trying to remove the ring using instruments. A narrow metal malleable retractor was placed between the ring and the penis to protect the penis. This was done on the dorsal aspect of the penis. The penile ring was cut on the dorsal aspect of the penis with the metal malleable retractor protecting the penis, initial using a rogerio connor drill and the ring was seen to be cutting slowly using this rogerio connor drill. Subsequently a small rogerio circular saw was used to cut the remainder of the ring and the penile ring was able to be cut using the rogerio circular saw, again with metal malleable retractor protecting the penis. Then, the penile ring was turned so that the cut portion of the penile ring was on the ventral aspect of the penis. Then, the penile ring was cut in a 2nd place opposite from the place on the penile ring that was cut initially and the penile ring was cut in this 2nd place on the dorsal aspect on the penis. Again with the metal malleable retractor protecting the penis, the penile ring was able be cut in the 2nd placed using the rogerio circular saw. When the penile ring was able to be cut most of the way then the penile ring was subsequently able to be removed by opening the ring and bending the ring where it was cut most of the way. Thus, the penile ring was able to be removed in its entirety without injury to the penis. After removal of the penile ring, the penile edema was seen to decrease and the penis was seen to pink up. Thus, the penile ring was cut in two places using initially the rogerio connor drill and then the rogerio circular saw with a metal malleable retractor protecting the penis and the penile ring was able be removed without injury to the penis. The penile ring was discarded in its entirety. The skin was cleaned and dried. Antibiotic ointment and a Band-Aid were applied to the small superficial cuts on the dorsal aspect of the penile shaft. The patient was awakened from general anesthesia and transferred to the recovery room in stable condition. The patient tolerated the procedure well. Plan is for the patient to be transferred to a [facility] bed when stable under the care of the hospitalist service. Case was discussed with the hospitalist environmental intern, Dr. Olayinka Lovell.
== END 2017-06-12 09:30 | disposition left against medical advice (07) ==
LOC: SED 12:57 → SAS 18:34 → OSC 21:41
PROVIDERS: ADMIT Hospitalist; ATTEND Internal Medicine
DX: S30.852A Superficial foreign body of penis, initial encounter (principal); N48.89 Other specified disorders of penis; F29 Unspecified psychosis not due to a substance or known physiological condition; F17.210 Nicotine dependence, cigarettes, uncomplicated; X58.XXXA Exposure to other specified factors, initial encounter; Y92.9 Unspecified place or not applicable; Y99.9 Unspecified external cause status; Y93.9 Activity, unspecified
CPT/HCPCS: 36415; 54115; 80053; 81000; 85025; 85610; 96361; 96374; 96375; 96376; 99291; 99292; G0378; J0690; J1100; J1170; J1885; J2060; J2405; J2704; J3010; J7030; J7120